=== PATIENT | female | born 1990 | race Caucasian/White ===

== ENCOUNTER 2016-03-19 11:06 | Emergency (ER) | payer OTHER ==
[~2016-03-19] VITALS: Ht 160 cm; Wt 87.0 kg
[2016-03-19 11:11] VITALS: BP 140/100; PULSE 104; RESP 16; TEMP 98.4; O2SAT 99
[2016-03-19 11:47] LABS: BLOOD, URINE SMALL (NEG); GLUCOSE,URINE NEG (NEG); NITRITE,URINE NEG (NEG)
[2016-03-19 11:57] LABS: KETONE, URINE 80 OR GREATER mg/dL (NEG)
[2016-03-19 11:58] LABS: METHOD OF COLLECTION VOIDED; URINE COLOR YELLOW (YELLW/STRAW)
[2016-03-19 11:59] LABS: RBC, URINE 0-3 /hpf (0-3); SQUAMOUS EPITHELIAL CELL URINE >8 /hpf (0-5)
[2016-03-19 12:00] LABS: BACTERIA, URINE MOD /hpf; COMMENT (UR) CULTURE INDICATED; CULTURE IF INDICATED CULTURE INDICATED
[2016-03-19] MEDS ORDERED: BIRTH CONTROL PO (13:03)
[2016-03-19 13:22] VITALS: O2SAT 98
[2016-03-19] MEDS ORDERED: SODIUM CHLORIDE 0.9% FLUSH 5 ML FLUSH IVF PRN (13:30)
[2016-03-19 13:36] VITALS: BP_SYST 127; BP_SYST 128; BP_DIAS 80; BP_DIAS 82
[2016-03-19 13:37] VITALS: BP 128/80; PULSE 76; RESP 17; O2SAT 100
[2016-03-19 13:39] LABS: AUTOMATED NEUTROPHIL # 5.3 TH/MM3 (1.8-7.7); BASOPHIL # 0.1 TH/MM3 (0-0.2); BASOPHIL % 0.7 % (0.0-2.0); EOSINOPHIL # 0.1 TH/MM3 (0-0.4); EOSINOPHIL % 0.9 % (0.0-4.0); HEMATOCRIT 44.8 % (35.0-46.0); HEMO FLAGS DIFF FINAL; LYMPH % 26.3 % (9.0-44.0); LYMPHOCYTE # 2.1 TH/MM3 (1.0-4.8); MEAN CELL VOLUME 83.6 FL (80.0-100.0); MEAN CORPUSCULAR HGB CONC 33.5 % (32.0-36.0); MONO % 4.5 % (0.0-8.0); NEUT % 67.6 % (16.0-70.0); PLATELET COUNT 249 TH/MM3 (150-450); RED BLOOD COUNT 5.36 MIL/MM3 (4.00-5.30); RED CELL DISTRIBUTION WIDTH 11.7 % (11.6-17.2)
[2016-03-19 13:45] LABS: CHLORIDE 106 MEQ/L (98-107); SODIUM (NA) 141 MEQ/L (136-145)
[2016-03-19 13:50] LABS: ANION GAP 9 MEQ/L (5-15); BICARBONATE 25.8 MEQ/L (21.0-32.0); BLOOD UREA NITROGEN 9 MG/DL (7-18)
[2016-03-19 13:51] LABS: INTERNATIONAL NORMALIZED RATIO 1.1 RATIO
[2016-03-19 13:53] LABS: ALT (GPT) 24 U/L (10-53); AST (GOT) 15 U/L (15-37); GLOMERULAR FILTRATION RATE 83 ML/MIN (>89)
[2016-03-19 13:54] LABS: TOTAL BILIRUBIN ADULT 0.7 MG/DL (0.2-1.0)
[2016-03-19 13:56] LABS: ALKALINE PHOSPHATASE 43 U/L (45-117)
--- NOTE | 2016-03-19 15:11 | PD ---
HPI Chief Complaint: Abdominal Pain Time Seen by Provider: 12:54 Travel History International Travel<30 days: No Contact w/Intl Traveler<30days: No Traveled to known affect area: No History of Present Illness HPI Patient is a 25-year-old female presents emergency department for evaluation of chest pain. Patient states she went to an outside facility was told it was likely anxiety and was discharged home. Patient states that since then she has started to having more severe chest pain intermittently in the middle of her chest. Describes it as sharp and nonradiating. Associated with some mild shortness of breath. States currently she is fairly symptomatically. No family history of early heart disease. She is nonsmoker 9 blood pressure no cholesterol issues. Patient also had a complaint of some mild abdominal cramping was told that she had a yeast infection at the outside facility and has not yet filled her medicine for this. She denies any nausea vomiting or diarrhea. PFSH Past Medical History Medical History: Denies Significant Hx Tetanus Vaccination: > 5 Years Influenza Vaccination: No ?: Not LMP: 03/13/2016 Past Surgical History Oral Surgery: Yes Social History Alcohol Use: No Tobacco Use: No Substance Use: No Allergies-Medications (Allergen,Severity, Reaction): Coded Allergies: Doxycycline (Verified Allergy, Intermediate, TINGLING IN FINGERS AND TOES. , 03/22/16) Reported Meds & Prescriptions Reported Meds & Active Scripts Active Reported [ Control] 1 Tab PO DAILY Review of Systems Except as stated in HPI: all other systems reviewed are Neg Physical Exam Narrative GENERAL: Well-developed well-nourished no apparent distress SKIN: Warm and dry. HEAD: Atraumatic. Normocephalic. EYES: Pupils equal and round. No scleral icterus. No injection or drainage. ENT: No nasal bleeding or discharge. Mucous membranes pink and moist. NECK: Trachea midline. No JVD. CARDIOVASCULAR: Regular rate and rhythm. No murmur appreciated. RESPIRATORY: No accessory muscle use. Clear to auscultation. Breath sounds equal bilaterally. GASTROINTESTINAL: Abdomen soft, non-tender, nondistended. Hepatic and splenic margins not palpable. MUSCULOSKELETAL: No obvious deformities. No clubbing. No cyanosis. No edema. NEUROLOGICAL: Awake and alert. No obvious cranial nerve deficits. Motor grossly within normal limits. Normal speech. PSYCHIATRIC: Appropriate mood and affect; insight and judgment normal. Data Data Last Documented VS Vital Signs Date Time Temp Pulse Resp B/P Pulse Ox O2 Delivery O2 Flow Rate FiO2 03/19/16 15:23 79 16 124/77 99 03/19/16 13:37 Room Air 03/19/16 11:11 98.4 Orders Urinalysis - C+S If Indicated (03/19/16 11:15) Ed Urine Pregnancytest Poc (03/19/16 11:15) Urine Culture (03/19/16 11:30) Electrocardiogram (03/19/16 13:17) Complete Blood Count With Diff (03/19/16 13:17) Comprehensive Metabolic Panel (03/19/16 13:17) D-Dimer (03/19/16 13:17) Prothrombin Time / Inr (Pt) (03/19/16 13:17) Act Partial Throm Time (Ptt) (03/19/16 13:17) Troponin I (03/19/16 13:17) Lipase (03/19/16 13:17) Ecg Monitoring (03/19/16 13:17) Bilateral Bp Monitoring (03/19/16 13:17) Iv Access Insert/Monitor (03/19/16 13:17) Oximetry (03/19/16 13:17) Oxygen Administration (03/19/16 13:17) Sodium Chloride 0.9% Flush (Ns Flush) (03/19/16 13:30) Chest, Pa & Lat (03/19/16 ) Electrocardiogram (03/19/16 11:24) Labs Laboratory Tests Test 03/19/16 03/19/16 11:30 13:30 Urine Collection Type VOIDED Urine Color YELLOW Urine Turbidity SLIGHT Urine pH 6.0 Urine Specific [place] 1.026 Urine Protein TRACE mg/dL Urine Glucose (UA) NEG mg/dL Urine Ketones 80 OR GREATER mg/dL Urine Occult Blood SMALL Urine Nitrite NEG Urine Bilirubin NEG Urine Leukocyte Esterase TRACE Urine RBC 0-3 /hpf Urine WBC 3-5 /hpf Urine Squamous Epithelial >8 /hpf Cells Urine Bacteria MOD /hpf Microscopic Urinalysis Comment CULTURE INDICATED White Blood Count 8.0 TH/MM3 Red Blood Count 5.36 MIL/MM3 Hemoglobin 15.0 GM/DL Hematocrit 44.8 % Mean Corpuscular Volume 83.6 FL Mean Corpuscular Hemoglobin 28.0 PG Mean Corpuscular Hemoglobin 33.5 % Concent Red Cell Distribution Width 11.7 % Platelet Count 249 TH/MM3 Mean Platelet Volume 7.4 FL Neutrophils (%) (Auto) 67.6 % Lymphocytes (%) (Auto) 26.3 % Monocytes (%) (Auto) 4.5 % Eosinophils (%) (Auto) 0.9 % Basophils (%) (Auto) 0.7 % Neutrophils # (Auto) 5.3 TH/MM3 Lymphocytes # (Auto) 2.1 TH/MM3 Monocytes # (Auto) 0.4 TH/MM3 Eosinophils # (Auto) 0.1 TH/MM3 Basophils # (Auto) 0.1 TH/MM3 CBC Comment DIFF FINAL Differential Comment Prothrombin Time 12.0 SEC Prothromb Time International 1.1 RATIO Ratio Activated Partial 30.0 SEC Thromboplast Time D-Dimer Quantitative (PE/DVT) LESS THAN 0.19 MG/L FEU Sodium Level 141 MEQ/L Potassium Level 4.0 MEQ/L Chloride Level 106 MEQ/L Carbon Dioxide Level 25.8 MEQ/L Anion Gap 9 MEQ/L Blood Urea Nitrogen 9 MG/DL Creatinine 0.84 MG/DL Estimat Glomerular Filtration 83 ML/MIN Rate Random Glucose 73 MG/DL Calcium Level 9.2 MG/DL Total Bilirubin 0.7 MG/DL Aspartate Amino Transf 15 U/L (AST/SGOT) Alanine Aminotransferase 24 U/L (ALT/SGPT) Alkaline Phosphatase 43 U/L Troponin I LESS THAN 0.02 NG/ML Total Protein 8.1 GM/DL Albumin 3.7 GM/DL Lipase 118 U/L MDM Medical Decision Making Medical Screen Exam Complete: Yes Emergency Medical Condition: Yes Interpretation(s) Normal sinus rhythm normal axis normal R-wave progression. No concerning ST T changes. This normal EKG. Differential Diagnosis ACS unlikely, NV unlikely, GERD, costochondritis, pericarditis unlikely, anxiety , PE. Narrative Course Patient was roomed in the emergency department, she appears well in no apparent distress. Chest x-ray negative, EKG negative, labs are reassuring. Minimal elevations of AST and LT of undetermined significance but no overt liver failure at this time in stable for outpatient workup. D-dimer negative. Discussed all the results with the patient and recommended outpatient follow-up with a primary care physician. Discussed that she appears in good health and I recommended Tums next time it happens this possibly her symptoms could be consistent with an esophageal spasm. She feels lighted with this workup and requests discharge. Diagnosis Primary Impression: Chest pain Qualified Code: R07.9 - Chest pain, unspecified type Disposition: 01 DISCHARGE HOME Condition: Stable Christophe Jackson MD Mar 19, 2016 15:11
--- NOTE | 2016-03-19 15:16 | RADHPO ---
EXAM DATE/TIME: 03/19/2016 14:59 [facility] COMPARISON: No previous studies available for comparison. INDICATIONS : Short of breath and chest tightness MEDICAL HISTORY : None. SURGICAL HISTORY : None. ENCOUNTER: Initial ACUITY: 3 days PAIN SCORE: 0/10 LOCATION: Bilateral chest FINDINGS: PA and lateral views of the chest demonstrate the lungs to be symmetrically aerated without evidence of mass, infiltrate or effusion. The cardiomediastinal contours are unremarkable. Osseous structure s are intact. CONCLUSION: No acute disease. Chaitanya Morton MD FACR on March 19, 2016 at 15:14 Board Certified Radiologist. This report was verified electronically.
[2016-03-19 15:23] VITALS: BP 124/77
--- NOTE | 2016-03-20 13:30 | EKG ---
Date Performed: 03/19/2016 Time Performed: 11:24:24 PTAGE: 25 years EKG: Sinus rhythm rSr'(V1) - probable normal variant Normal ECG NO PREVIOUS TRACING DOCTOR: Dary Graham Interpretating Date/Time 03/20/2016 13:29:31
--- NOTE | 2016-03-20 13:38 | EKG ---
Date Performed: 03/19/2016 Time Performed: 14:23:34 PTAGE: 25 years EKG: Sinus rhythm rSr'(V1) - probable normal variant Normal ECG Compared to prior tracing no significant change PREVIOUS TRACING : 03/19/2016 11.24 DOCTOR: Dary Graham Interpretating Date/Time 03/20/2016 13:38:15
== END 2016-03-19 15:38 | disposition home or self-care (01) ==
LOC: PHED 11:06
DX: R07.9 Chest pain, unspecified (principal); R06.02 Shortness of breath; R10.9 Unspecified abdominal pain; R74.8 Abnormal levels of other serum enzymes
CPT/HCPCS: 71020; 80053; 81001; 83690; 84484; 84703; 85025; 85379; 85610; 85730; 87086; 93005

== ENCOUNTER 2016-03-22 19:38 | Emergency (ER) | payer OTHER ==
[~2016-03-22 19:38] MED LIST: BIRTH CONTROL PO
[2016-03-22 19:42] VITALS: BP 138/102; PULSE 90; RESP 20; TEMP 98.3; O2SAT 100
--- NOTE | 2016-03-22 20:41 | PD ---
HPI Chief Complaint: Headache Time Seen by Provider: 20:31 Travel History International Travel<30 days: No Contact w/Intl Traveler<30days: No Traveled to known affect area: No History of Present Illness HPI 25-year-old female presents to the emergency department for complaint of headache and persistent chest pain. Patient states symptoms have been present since Saturday. Patient is been having intermittent retrosternal chest pressure. Patient does not report any radiating neck jaw back shoulder arm or abdominal pain. Patient does report intermittent tingling in the arms and the legs with generalized weakness. Patient also has intermittent diarrhea. Patient has no dysuria but was seen by her cabin cleaner a partially 2 weeks ago and that she may have urinary tract infection. Patient was just seen on 19 March with full evaluation at that time was told she had some bacteria in her urine was not placed on antibiotic and is concerned about this. Patient also reports that today she had an ocular migraine. Patient states she has issues with headaches and has been seen in the past by chiropractor on a weekly basis for manipulation since moving here for school has not had any recent manipulations. Patient denies any known stressors. Patient states headache is not sudden onset thunderclap or worst ever and currently has no headache at all. No recent febrile illness no report of meningismus or nuchal rigidity. No report of sinus pressure drainage sore throat earache or cough. Patient has taken Aleve today without symptomatic relief. Patient has family history of hypertension and denies family history of migraine but reports that a few years ago she was diagnosed with ocular migraine and rarely has these symptoms. Patient denies control pill use. Patient states she is a nonsmoker. Patient states that she stopped taking control pills recently and had been on control pills specifically for acne management and not for contraception. Patient denies . Overall discomfort as 2/10 in intensity. Patient also should reports that she has been seen recently at an urgent care. Patient states at the urgent care she was diagnosed with anxiety but does not feel that she is anxious. Patient also denies any injury or fall. [facility] Past Medical History Narrative Medical Acne, ocular migraine; oral surgery; no tobacco use; nursing notes reviewed ?: Not LMP: 03/14/16 Past Surgical History Oral Surgery: Yes Social History Alcohol Use: No Tobacco Use: No Substance Use: No Allergies-Medications (Allergen,Severity, Reaction): Coded Allergies: Doxycycline (Verified Allergy, Intermediate, TINGLING IN FINGERS AND TOES. , 03/22/16) Reported Meds & Prescriptions Reported Meds & Active Scripts Active Reported [ Control] 1 Tab PO DAILY Review of Systems Except as stated in HPI: all other systems reviewed are Neg General / Constitutional: No: Fever, Chills Eyes: Positive: Photophobia, No: Diploplia, Blurred Vision HENT: Positive: Headaches, No: Lightheadedness, Neck Pain Cardiovascular: Positive: Chest Pain or Discomfort, No: Palpitations, Diaphoresis, Syncope Respiratory: No: Cough, Shortness of Breath Gastrointestinal: Positive: Nausea, Diarrhea, No: Vomiting, Abdominal Pain Genitourinary: No: Dysuria, Flank Pain Musculoskeletal: No: Myalgias, Arthralgias Skin: No Rash Neurologic: Positive: Headache, No: Weakness, Dizziness, Syncope, Focal Abnormalities, Coordination Problem Psychiatric: No: Anxiety Hematologic/Lymphatic: No: Lymph Node Enlargement Physical Exam Narrative GENERAL: Well-developed well-nourished female in no acute distress no respiratory distress. SKIN: Warm and dry. HEAD: Atraumatic. Normocephalic. EYES: Pupils equal and round. No scleral icterus. No injection or drainage. ENT: No nasal bleeding or discharge. Mucous membranes pink and moist. NECK: Trachea midline. No JVD. CARDIOVASCULAR: Regular rate and rhythm. RESPIRATORY: No accessory muscle use. Clear to auscultation. Breath sounds equal bilaterally. GASTROINTESTINAL: Abdomen soft, non-tender, nondistended. Hepatic and splenic margins not palpable. MUSCULOSKELETAL: Extremities without clubbing, cyanosis, or edema. No obvious deformities. Bilateral radial pulses and refill is pedis pulses 2+ to palpation. NEUROLOGICAL: Awake and alert. GCS 15. No obvious cranial nerve deficits. Motor grossly within normal limits. Five out of 5 muscle strength in the arms and legs. Sensory exam grossly intact. Deep tendon reflexes 2+ and symmetric bilateral upper extremities and lower extremities. No limb ataxia. No pronator drift. Normal speech. PSYCHIATRIC: Appropriate mood and affect; insight and judgment normal. Data Data Last Documented VS Vital Signs Date Time Temp Pulse Resp B/P Pulse Ox O2 Delivery O2 Flow Rate FiO2 03/22/16 21:38 20 98 03/22/16 21:30 93 124/83 128/78 03/22/16 21:00 Room Air 03/22/16 19:42 98.3 Orders Electrocardiogram (03/22/16 20:31) Basic Metabolic Panel (Bmp) (03/22/16 20:31) Ckmb (Isoenzyme) Profile (03/22/16 20:31) Complete Blood Count With Diff (03/22/16 20:31) D-Dimer (03/22/16 20:31) Magnesium (Mg) (03/22/16 20:31) Prothrombin Time / Inr (Pt) (03/22/16 20:31) Act Partial Throm Time (Ptt) (03/22/16 20:31) Troponin I (03/22/16 20:31) Ecg Monitoring (03/22/16 20:31) Bilateral Bp Monitoring (03/22/16 20:31) Iv Access Insert/Monitor (03/22/16 20:31) Oximetry (03/22/16 20:31) Oxygen Administration (03/22/16 20:31) Sodium Chloride 0.9% Flush (Ns Flush) (03/22/16 20:45) Ed Urine Pregnancytest Poc (03/22/16 20:31) Urinalysis - C+S If Indicated (03/22/16 20:31) Thyroid Stimulating Hormone (03/22/16 20:31) Orthostatic Vital Signs (03/22/16 20:31) Ct Brain W/O Iv Contrast(Rout) (03/22/16 ) Labs Laboratory Tests Test 03/22/16 20:50 White Blood Count 9.6 TH/MM3 Red Blood Count 5.29 MIL/MM3 Hemoglobin 14.8 GM/DL Hematocrit 44.3 % Mean Corpuscular Volume 83.8 FL Mean Corpuscular Hemoglobin 28.0 PG Mean Corpuscular Hemoglobin 33.4 % Concent Red Cell Distribution Width 11.9 % Platelet Count 242 TH/MM3 Mean Platelet Volume 7.7 FL Neutrophils (%) (Auto) 55.1 % Lymphocytes (%) (Auto) 37.9 % Monocytes (%) (Auto) 5.3 % Eosinophils (%) (Auto) 0.9 % Basophils (%) (Auto) 0.8 % Neutrophils # (Auto) 5.3 TH/MM3 Lymphocytes # (Auto) 3.6 TH/MM3 Monocytes # (Auto) 0.5 TH/MM3 Eosinophils # (Auto) 0.1 TH/MM3 Basophils # (Auto) 0.1 TH/MM3 CBC Comment DIFF FINAL Differential Comment Prothrombin Time 13.7 SEC Prothromb Time International 1.2 RATIO Ratio Activated Partial 32.9 SEC Thromboplast Time D-Dimer Quantitative (PE/DVT) LESS THAN 0.19 MG/L FEU Urine Color YELLOW Urine Turbidity CLEAR Urine pH 6.0 Urine Specific [place] 1.014 Urine Protein NEG mg/dL Urine Glucose (UA) NEG mg/dL Urine Ketones NEG mg/dL Urine Occult Blood TRACE Urine Nitrite NEG Urine Bilirubin NEG Urine Leukocyte Esterase NEG Urine RBC 0-2 /hpf Urine WBC 0-2 /hpf Urine Squamous Epithelial 0-5 /hpf Cells Urine Bacteria FEW /hpf Microscopic Urinalysis Comment CULT NOT INDICATED Sodium Level 141 MEQ/L Potassium Level 4.0 MEQ/L Chloride Level 105 MEQ/L Carbon Dioxide Level 26.4 MEQ/L Anion Gap 10 MEQ/L Blood Urea Nitrogen 10 MG/DL Creatinine 0.80 MG/DL Estimat Glomerular Filtration 88 ML/MIN Rate Random Glucose 79 MG/DL Calcium Level 9.2 MG/DL Magnesium Level 2.0 MG/DL Total Creatine Kinase 60 U/L Troponin I LESS THAN 0.02 NG/ML Thyroid Stimulating Hormone 1.650 uIU/ML 3rd Gen [facility] Medical Decision Making Medical Screen Exam Complete: Yes Emergency Medical Condition: Yes Medical Record Reviewed: Yes Interpretation(s) CBC & BMP Diagram 03/22/16 20:50 EKG: Normal sinus rhythm rate [address] elevation or injury pattern change noted artifact is present at baseline d-dimer: 0.19, not elevated troponin I: less than 0.02, not elevated poc hcg: negative ua: few bacteria ; cx from 03/19/16 10-50,000 mixed surjit Differential Diagnosis Chest pain, atypical chest pain, PE, thyroid dysfunction, electronic disturbance , , UTI, anxiety, unlikely ICH or mass, no history of CHI Narrative Course Orthostatic measurements obtained saline lock inserted and flexion sent for resulting EKG is sinus rhythm with rate of [address] elevation or injury pattern change noted RSR prime with QRS of 102 Patient resting comfortably voicing no concerns or complaints @ 10:55 PM patient informed of diagnostic studies results and reports feels improved; patient stable for outpatient management and follow-up with her primary care provider Diagnosis Primary Impression: Chest pain Qualified Code: R07.9 - Chest pain, unspecified type Additional Impression: Migraine headache Qualified Code: G43.909 - Migraine without status migrainosus, not intractable , unspecified migraine type Referrals: Primary Care Physician call for appointment Patient Instructions: General Instructions Additional Instructions: follow up with PCP return to the ED as needed may use ibuprofen as needed for pain per package direction Med/Other Pt SpecificInfo: No Meds Exist/No RX given Disposition: 01 DISCHARGE HOME Condition: Stable Bella Eden MD Mar 22, 2016 20:41
[2016-03-22] MEDS ORDERED: SODIUM CHLORIDE 0.9% FLUSH 5 ML FLUSH IVF PRN (20:45)
[2016-03-22 21:00] VITALS: BP_SYST 124; BP_SYST 128; BP_SYST 129; BP_SYST 133; BP_DIAS 76; BP_DIAS 80; BP_DIAS 90; PULSE 89; RESP 20; O2SAT 98
[2016-03-22 21:17] LABS: BLOOD, URINE TRACE (NEG); GLUCOSE,URINE NEG (NEG); KETONE, URINE NEG (NEG); NITRITE,URINE NEG (NEG)
[2016-03-22 21:20] LABS: AUTOMATED NEUTROPHIL # 5.3 TH/MM3 (1.8-7.7); BASOPHIL # 0.1 TH/MM3 (0-0.2); BASOPHIL % 0.8 % (0.0-2.0); EOSINOPHIL # 0.1 TH/MM3 (0-0.4); EOSINOPHIL % 0.9 % (0.0-4.0); HEMATOCRIT 44.3 % (35.0-46.0); HEMO FLAGS DIFF FINAL; LYMPH % 37.9 % (9.0-44.0); LYMPHOCYTE # 3.6 TH/MM3 (1.0-4.8); MEAN CELL VOLUME 83.8 FL (80.0-100.0); MEAN CORPUSCULAR HGB CONC 33.4 % (32.0-36.0); MONO % 5.3 % (0.0-8.0); NEUT % 55.1 % (16.0-70.0); PLATELET COUNT 242 TH/MM3 (150-450); RED BLOOD COUNT 5.29 MIL/MM3 (4.00-5.30); RED CELL DISTRIBUTION WIDTH 11.9 % (11.6-17.2); WHITE BLOOD COUNT 9.6 TH/MM3 (4.0-11.0)
[2016-03-22 21:30] VITALS: BP_SYST 124; BP_SYST 128; BP_DIAS 78; BP_DIAS 83; PULSE 93; RESP 20; O2SAT 96
[2016-03-22 21:31] LABS: CHLORIDE 105 MEQ/L (98-107); SODIUM (NA) 141 MEQ/L (136-145)
[2016-03-22 21:34] LABS: ANION GAP 10 MEQ/L (5-15); BICARBONATE 26.4 MEQ/L (21.0-32.0); BLOOD UREA NITROGEN 10 MG/DL (7-18)
[2016-03-22 21:37] LABS: APTT (PATIENT) 32.9 SEC (24.3-30.1); BACTERIA, URINE FEW /hpf; COMMENT (UR) CULT NOT INDICATED; CULTURE IF INDICATED CULT NOT INDICATED; INTERNATIONAL NORMALIZED RATIO 1.2 RATIO; PROTHROMBIN TIME - PATIENT 13.7 SEC (9.8-11.6); RBC, URINE 0-2 /hpf (0-3); SQUAMOUS EPITHELIAL CELL URINE 0-5 /hpf (0-5); URINE COLOR YELLOW (YELLW/STRAW); WBC, URINE 0-2 /hpf (0-5)
[2016-03-22 21:38] LABS: GLOMERULAR FILTRATION RATE 88 ML/MIN (>89)
[2016-03-22 21:48] LABS: CREATINE KINASE 60 U/L (26-192)
[2016-03-22 22:15] VITALS: BP 119/70; PULSE 72; RESP 20; O2SAT 99
[2016-03-22 23:50] VITALS: BP 115/77
--- NOTE | 2016-03-23 13:28 | EKG ---
Date Performed: 03/22/2016 Time Performed: 20:26:42 PTAGE: 25 years EKG: Pacer detection suspended due to external noise-REVIEW ADVISED Sinus rhythm . Incomplete RBBB Septal T wave changes are nonspecific Since previous tracing, no significant change noted Borderline ECG PREVIOUS TRACING : 03/19/2016 14.23 DOCTOR: Dary Graham Interpretating Date/Time 03/23/2016 13:27:57
== END 2016-03-23 00:31 | disposition home or self-care (01) ==
LOC: PHED 19:38
DX: G43.909 Migraine, unspecified, not intractable, without status migrainosus (principal); R07.9 Chest pain, unspecified; I45.10 Unspecified right bundle-branch block; Z79.3 Long term (current) use of hormonal contraceptives
CPT/HCPCS: 80048; 81001; 82550; 83735; 84443; 84484; 84703; 85025; 85379; 85610; 85730; 93005